=== PATIENT | male | born 1990 | race Caucasian/White ===

== ENCOUNTER 2017-07-26 15:25 | Emergency (ER) | payer MEDICAID ==
[2017-07-26] MEDS: IBUPROFEN 600 MG TAB PO (17:58)
[2017-07-26] MEDS: CLINDAMYCIN 300 MG CAP PO (17:58)
[2017-07-26] MEDS: DIPHTH/TET/ACEL PERTUSS (ADULT) 0.5 ML VIAL IM* (17:59)
== END 2017-07-26 19:07 | disposition home or self-care (01) ==
LOC: FTE 19:07
DX: S41.112A Laceration without foreign body of left upper arm, initial encounter (principal); L08.9 Local infection of the skin and subcutaneous tissue, unspecified; R40.2412 Glasgow coma scale score 13-15, at arrival to emergency department; X99.8XXA Assault by other sharp object, initial encounter; Z23 Encounter for immunization
CPT/HCPCS: 73060; 90471; 90715; 99283-25